=== PATIENT | female | born 1990 | race Hispanic/Latino ===

== ENCOUNTER 2023-10-25 12:56 | Inpatient (IN) | payer OTHER ==
[2023-10-25] MEDS ORDERED: hydrALAZINE 20 MG/ML VIAL SLOW IVP PRN ×2 (13:01→15:19)
[2023-10-25 14:32] LABS: #Monocytes 0.9 10x3/uL (0.0-1.1); #Neutrophils 7.5 10x3/uL (1.5-8.4); %Basophils 0.2 % (0.0-2.0); %Eosinophils 0.4 % (0.0-6.0); %Lymphocytes 22.4 % (18.0-47.0); %Neutrophils 68.5 % (40.0-75.0); Hematocrit 35.1 % (34.9-44.5); Hemoglobin 11.9 g/dL (12.0-15.5); Mean Corpuscular HGB CONC 33.9 g/dL (32.0-36.0); Mean Corpuscular Volume 88.4 fl (81.6-98.3); Mean Platelet Volume 10.9 fl (7.4-10.4); Platelet Count 268 10x3/uL (150-450); RBC Distribution Width 13.4 % (11.5-14.5); Red Blood Cell (RBC) Count 3.97 10x6/uL (3.90-5.03)
[2023-10-25 14:48] LABS: Creatinine, Urine 51.3 mg/dL (47-110)
[2023-10-25 14:49] LABS: ALT (SGPT) 8 U/L (8-55); AST (SGOT) 14 U/L (5-34); Albumin 3.4 g/dL (3.5-5.0); Alkaline Phosphatase 274 U/L (40-110); Anion Gap 12 mmol/L (10-20); BUN (Urea Nitrogen) 6 mg/dL (7.0-18.7); Bilirubin, Total 0.4 mg/dL (0.2-1.2); Calc. Creatinine Clearance 0 mL/min (70-130); Calcium 8.8 mg/dL (7.8-10.44); Carbon Dioxide 22 mmol/L (22-29); Chloride 106 mmol/L (98-107); Estimated GFR 114; Globulin 3.6 g/dL (2.4-3.5); Glucose 84 mg/dL (70-105); Potassium 4.1 mmol/L (3.5-5.1); Sodium 136 mmol/L (136-145)
[2023-10-25] MEDS ORDERED: Acetaminophen 500 MG TAB PO PRN (15:19)
[2023-10-25] MEDS ORDERED: Calcium Gluc 4.6 MEQ/10 ML (100 MG/ML) SLOW IVP PRN (15:19)
[2023-10-25] MEDS ORDERED: Lorazepam 2 MG/ML VIAL SLOW IVP PRN (15:19)
[2023-10-25] MEDS ORDERED: Lidocaine 1% (PF) 30 ML VIAL SC PRN ×2 (15:19→15:33)
[2023-10-25] MEDS ORDERED: Promethazine HCl 25 MG/ML VIAL IM PRN (15:19)
[2023-10-25] MEDS ORDERED: Labetalol HCl 100 MG/20 ML VIAL SLOW IVP PRN ×3 (15:19)
[2023-10-25] MEDS ORDERED: Oxytocin 30 units/NS 500 ML 500 ML IV SCH (15:30)
[2023-10-25 16:48] LABS: Hematocrit 37.1 % (34.9-44.5); Hemoglobin 12.6 g/dL (12.0-15.5); Mean Corpuscular Volume 88.3 fl (81.6-98.3); Mean Platelet Volume 11.2 fl (7.4-10.4); Platelet Count 268 10x3/uL (150-450); RBC Distribution Width 13.4 % (11.5-14.5); White Blood Cell (WBC) Count 11.2 10x3/uL (3.5-10.5)
[2023-10-25 17:23] LABS: Syphilis Antibody Nonreactive (Nonreactive); Syphilis Antibody Index 0.05 S/CO (<1.00 Non-Reactive)
[2023-10-25 17:24] LABS: HBSAg Index 0.21 S/CO (0-0.99); Hep B Surf Ag - L&D Non-Reactive S/CO (NonReactive)
[2023-10-25] MEDS: Misoprostol 100 MCG TAB VAG SCH (17:36)
[2023-10-25 17:55] VITALS: BMI 32.9
[2023-10-25] MEDS: Lactated Ringer's 1,000 ML IV SCH (19:14)
[2023-10-25] MEDS: Penicillin G 2.5 MILL.units 2.5 MILL.UNITS in Premix 1 BAG IVPB SCH (21:00)
[2023-10-25] MEDS: Penicillin G Potassium 5 MILL.UNITS in Sodium Chloride 0.9% 100 ML IVPB SCH (21:15)
[2023-10-26] MEDS: Penicillin G 2.5 MILL.units 2.5 MILL.UNITS in Premix 1 BAG IVPB SCH (05:36)
[2023-10-26] MEDS: fentaNYL 50 mcg/mL 1 mL Vial SLOW IVP PRN (05:39)
[2023-10-26] MEDS: Ondansetron PF 4 MG/2 ML Vial IVP PRN (09:25)
[2023-10-26] MEDS ORDERED: Naloxone HCl 0.4 mg/ml Vial IVP PRN ×2 (18:37)
[2023-10-26] MEDS ORDERED: Promethazine HCl 25 MG/ML VIAL IM PRN (18:37)
[2023-10-26] MEDS ORDERED: Ondansetron PF 4 MG/2 ML Vial IVP PRN (18:37)
[2023-10-26] MEDS ORDERED: Moisturizing Cream (Eucerin) 113 GM JAR TOP PRN (18:37)
[2023-10-26] MEDS ORDERED: Lactated Ringer's 500 ML IV PRN (18:37)
[2023-10-26] MEDS ORDERED: ePHEDrine Sulfate 50 MG/10 ML VIAL SLOW IVP PRN (18:37)
[2023-10-26] MEDS ORDERED: fentaNYL 2 mcg/Ropivacaine 0.2% Epidural 100 ML CADD EPIDURAL SCH (18:45)
[2023-10-26] MEDS ORDERED: Communication Order-Pharmacy FS SCH (18:45)
[2023-10-26] MEDS: diphenhydrAMINE 50 MG/ML VIAL IVP PRN (22:37)
[2023-10-26] MEDS: Oxytocin 30 units/NS 500 ML 500 ML IV SCH (23:57)
[2023-10-27] MEDS: Calcium Carbonate 500 MG ChewTAB PO SCH (01:59)
[2023-10-27] MEDS: diphenhydrAMINE 50 MG/ML VIAL IVP SCH (03:00)
[2023-10-27] MEDS: Dextrose 5%-Lactated Ringers 1,000 ML IV SCH (05:00)
[2023-10-27] MEDS: fentaNYL/Ropivacaine Epidural 100 ML ONE (05:34)
[2023-10-27] MEDS ORDERED: Famotidine/PF 20 mg/2ml Vial SLOW IVP PRN (08:16)
[2023-10-27] MEDS ORDERED: Bicitra 30 ML UDCUP PO PRN (08:16)
[2023-10-27] MEDS: CEFAZOLIN 2 GM in Sodium Chloride 0.9% 100 ML IVPB SCH (08:38)
[2023-10-27] MEDS: Azithromycin 500 MG in Sodium Chloride 0.9% 250 ML 250 ML IVPB SCH (08:38)
[2023-10-27] MEDS ORDERED: Moisturizing Cream (Eucerin) 113 GM JAR TOP PRN (09:52)
[2023-10-27] MEDS ORDERED: Promethazine HCl 25 MG SUPP PR PRN (09:52)
[2023-10-27] MEDS ORDERED: Naloxone HCl 0.4 mg/ml Vial IVP PRN ×2 (09:52)
[2023-10-27] MEDS ORDERED: Ondansetron PF 4 MG/2 ML Vial IVP PRN ×2 (09:52)
[2023-10-27] MEDS ORDERED: Meperidine HCl/PF 25 MG (1 mL) VIAL SLOW IVP PRN (09:52)
[2023-10-27] MEDS ORDERED: Promethazine HCl 25 MG/ML VIAL IM PRN (09:52)
[2023-10-27] MEDS ORDERED: fentaNYL 50 mcg/mL 1 mL Vial SLOW IVP PRN (09:52)
[2023-10-27] MEDS ORDERED: Naloxone HCl 0.4 mg/ml Vial IV PRN (09:52)
[2023-10-27] MEDS ORDERED: diphenhydrAMINE 50 MG/ML VIAL IVP PRN (09:52)
[2023-10-27] MEDS ORDERED: Communication Order-Pharmacy FS SCH (10:00)
[2023-10-27] MEDS ORDERED: hydrALAZINE 20 MG/ML VIAL SLOW IVP PRN (10:04)
[2023-10-27] MEDS ORDERED: Boostrix 0.5 ML (Tdap) VIAL (>/=7 yrs of age) IM ONE (10:04)
[2023-10-27] MEDS ORDERED: Methylergonovine 0.2 MG/ML VIAL IM PRN (10:04)
[2023-10-27] MEDS ORDERED: Misoprostol 200 MCG TAB PR PRN (10:04)
[2023-10-27] MEDS: Morphine PF 10 MG/10 ML VIAL ONE (13:10)
[2023-10-27] MEDS: CEFAZOLIN 2 GM VIAL ONE (13:10)
[2023-10-27] MEDS: Azithromycin 500 MG VIAL ONE (13:10)
[2023-10-27] MEDS: Oxytocin 10 UNITS/ML VIAL ONE (13:10)
[2023-10-27] MEDS: Tranexamic Acid 1,000 MG/10 ML VIAL ONE (13:10)
[2023-10-27] MEDS: fentaNYL 50 mcg/mL 1 mL Vial ONE (13:10)
[2023-10-27] MEDS: Morphine 2 MG/ML VIAL SLOW IVP PRN (13:52)
[2023-10-27] MEDS: Ketorolac Tromethamine 30 MG (1 mL) VIAL IVP SCH ×2 (17:14→23:49)
[2023-10-27] MEDS ORDERED: Lidocaine 2% MPF 10 ML AMP (For Epidural Use) ONE (20:02)
[2023-10-27] MEDS ORDERED: ePHEDrine Sulfate 50 MG/10 ML VIAL ONE (20:02)
[2023-10-27] MEDS ORDERED: Bupivacaine 0.25% HCL 30 ML VIAL ONE (20:02)
[2023-10-27] MEDS: Docusate 100 MG CAP PO SCH (21:35)
[2023-10-27] MEDS ORDERED: HYDROcodone/Acetaminophen 5/325 mg Tablet PO PRN (22:00)
[2023-10-27] MEDS: Simethicone Chewable 80 MG TAB PO PRN (23:53)
[2023-10-28 03:30] LABS: Mean Corpuscular HGB CONC 33.3 g/dL (32.0-36.0); Mean Corpuscular Hemoglobin 29.3 pg (27.0-33.0); Mean Platelet Volume 10.9 fl (7.4-10.4); Platelet Count 230 10x3/uL (150-450); RBC Distribution Width 14.2 % (11.5-14.5); Red Blood Cell (RBC) Count 3.41 10x6/uL (3.90-5.03); White Blood Cell (WBC) Count 14.6 10x3/uL (3.5-10.5)
[2023-10-28] MEDS: HYDROcodone/Acetaminophen 5/325 mg Tablet PO PRN (09:16)
[2023-10-28] MEDS: Ferrous Sulfate 325 MG TAB PO SCH (09:23)
[2023-10-28] MEDS: Ibuprofen 800 MG TAB PO SCH (14:17)
[2023-10-28] MEDS: Acetaminophen 325 MG TAB PO PRN (23:23)
[2023-10-29] MEDS: Labetalol HCl 200 MG TAB PO SCH ×2 (11:51→21:29)
[2023-10-30 11:33] VITALS: BP 133/75; TEMP 98.7
== END 2023-10-30 13:10 | disposition home or self-care (01) | DRG 788 ==
LOC: CSHLD/OP 12:56 → CSHLD 16:29 → CSHPP 10-27 12:02
PROVIDERS: ADMIT Student in an Organized Health Care Education/Training Program; ATTEND Student in an Organized Health Care Education/Training Program
PROC: 10907ZC Drainage of Amniotic Fluid, Therapeutic from Products of Conception, Via Natural or Artificial Opening (ICD-10-PCS; 2023-10-26)
PROC: 10H07YZ Insertion of Other Device into Products of Conception, Via Natural or Artificial Opening (ICD-10-PCS; 2023-10-26)
PROC: 3E033VJ Introduction of Other Hormone into Peripheral Vein, Percutaneous Approach (ICD-10-PCS; 2023-10-26)
PROC: 10D00Z1 Extraction of Products of Conception, Low, Open Approach (ICD-10-PCS; principal; 2023-10-27)
DX: O14.14 Severe pre-eclampsia complicating childbirth (principal); O61.9 Failed induction of labor, unspecified; O99.824 Streptococcus B carrier state complicating childbirth; Z3A.38 38 weeks gestation of pregnancy; Z37.0 Single live birth; O62.9 Abnormality of forces of labor, unspecified; O69.81X0 Labor and delivery complicated by cord around neck, without compression, not applicable or unspecified; D50.8 Other iron deficiency anemias; O90.81 Anemia of the puerperium
CPT/HCPCS: 36415; 51702; 80053; 82570; 84156; 85025; 85027; 86780; 86850; 86900; 86901; 87340; 99285; J0456; J0665; J1200; J1885; J2272; J2274; J2405; J2540; J2590; J3010; J3490; J7050; J7120